=== PATIENT | male | born 1955 | race Caucasian/White ===

== ENCOUNTER 2018-07-01 14:05 | Observation (INO) | payer BC, OTHER ==
[2018-07-01 14:42] LABS: #Basophils 0.1 thou/uL (0.0-0.2); #Lymphocytes 1.1 thou/uL (1.20-3.40); #Monocytes 0.4 thou/uL (0.11-0.59); #Neutrophils 7.2 thou/uL (1.40-6.50); %Eosinophils 0.1 % (0.0-10.0); %Lymphocytes 12.1 % (21.0-51.0); %Monocytes 4.8 % (0.0-10.0); Hemoglobin 14.9 g/dL (14.0-18.0); Mean Corpuscular HGB CONC 32.1 g/dL (32.0-36.0); Mean Corpuscular Hemoglobin 32.8 pg (27.0-31.0); Mean Platelet Volume 7.2 fL (7.4-10.4); Platelet Count 279 thou/uL (130-400); RBC Distribution Width 11.9 % (11.5-14.5); Red Blood Cell (RBC) Count 4.54 mill/uL (4.70-6.10); White Blood Cell (WBC) Count 8.7 thou/uL (4.8-10.8)
[2018-07-01 15:04] LABS: ALT (SGPT) 25 U/L (8-55); AST (SGOT) 24 U/L (5-34); Albumin 3.9 g/dL (3.4-4.8); Alkaline Phosphatase 60 U/L (40-150); Anion Gap 11 mmol/L (10-20); BUN (Urea Nitrogen) 20 mg/dL (8.4-25.7); Bilirubin, Total 0.5 mg/dL (0.2-1.2); CK (CPK) 253 U/L (30-200); Calc. Creatinine Clearance 0 mL/min (70-130); Calcium 8.9 mg/dL (7.8-10.44); Carbon Dioxide 23 mmol/L (23-31); Chloride 109 mmol/L (98-107); Estimated GFR-MDRD 79; Globulin 2.2 g/dL (2.4-3.5); Glucose 107 mg/dL (80-115); Lipase 11 U/L (8-78); Potassium 4.4 mmol/L (3.5-5.1); Protein, Total 6.1 g/dL (5.8-8.1); Sodium 139 mmol/L (136-145)
[2018-07-01 15:21] LABS: Bilirubin Negative (Negative); Blood, Urine Negative (Negative); Clarity CLEAR (Clear); Glucose, Urine (Dipstick) Negative (Negative); Leukocyte Negative (Negative); Nitrite Negative (Negative); Protein, Urine (Dipstick) Negative (Neg-Trace); Urobilinogen 0.2 mg/dL (0.2-1.0); pH, Urine 5.5 (5.0-9.0)
[2018-07-01 15:24] LABS: Specific Gravity, Urine 1.055 (1.002-1.036)
--- NOTE | 2018-07-01 15:31 | ULT ---
ULTRASOUND ABDOMEN LIMITED: (RIGHT UPPER QUADRANT) 07/01/18 HISTORY: 62-year-old male with right upper quadrant abdominal pain. FINDINGS: The gallbladder has normal wall thickness and has no evidence of gallstones or sludge. The hepatic e chogenicity is normal. The right kidney has normal echogenicity and has no hydronephrosis. The panc reas is visualized, although ultrasound is relatively insensitive for pancreatic pathology compared t o CT and MRI. There is no biliary dilation. The common duct caliber is 3 mm. IMPRESSION: Normal. ronan [] POS: TIM
[2018-07-01 16:40] VITALS: BMI 32.5
[2018-07-01] MEDS ORDERED: Ondansetron ODT 4 MG TAB SL PRN (16:47)
[2018-07-01] MEDS ORDERED: Ondansetron PF 4 MG/2 ML Vial IVP PRN (16:47)
[2018-07-01] MEDS ORDERED: Sodium Chloride 0.9% 1,000 ML IV SCH (16:47)
[2018-07-01] MEDS ORDERED: Morphine 4 MG/ML VIAL SLOW IVP PRN ×2 (16:47→21:02)
[2018-07-01] MEDS ORDERED: Acetaminophen 325 MG TAB PO PRN (17:59)
[2018-07-01] MEDS: Sodium Chloride 0.9% 1,000 ML IV SCH (18:34)
--- NOTE | 2018-07-01 18:45 | HP ---
Please see the history and physical from the residents, for which I concur. The patient was seen, evaluated, and discussed with residents by bedside. CHIEF COMPLAINT: Abdominal pain. HISTORY OF PRESENT ILLNESS: This is a 62-year-old from [place], who last week had suprapubic abdominal pain for just a few hours, went away, blew it off. He has had mild viral upper respiratory tract infection symptoms this week. Again, nothing major. Slept fine last night, nothing have been abnormal. Woke up this morning feeling okay, had a bowel movement and not too much longer afterwards started having suprapubic to right and left quadrant abdominal pain, fairly intense bad enough. He called his , who has gone to the store. Told her to come back, got him to the emergency room. Morphine was given and eventually few hours later, another dose of morphine was needed to control the pain. He is better now. Did vomit once this morning. No fever. The bowel movement this morning was normal. Denies dysuria, hematuria, hesitation, or any urinary symptoms. All week, his bowel movements have been normal. He has never had a colonoscopy. He does have known coronary artery disease including stents x3 couple of years ago. It sounds like he self-discontinued his statin, but certainly not having any chest pain or shortness of breath. PAST MEDICAL HISTORY: Including the chronic umbilical hernia, it is really unchanged. Does have history of inguinal hernia surgery in the past as well. Coronary artery disease as above, right hip replacement, inguinal hernia repairs in the 70s, and back surgery before. SOCIAL HISTORY: Socially, he states two alcohol drinks at night. Last drink was last night. Nonsmoker. routine medications. Otherwise, the rest of the past medical history, per the resident's history and physical. PAST SURGICAL HISTORY: Per the resident's history and physical. MEDICATIONS: Per the resident's history and physical. REVIEW OF SYSTEMS: Per the resident's history and physical. PHYSICAL EXAMINATION: GENERAL: On exam, nontoxic. No acute distress. VITAL SIGNS: Stable and afebrile. HEENT: Within normal limits. NECK: No adenopathy, thyromegaly, or bruits. CHEST: Clear. HEART: Regular rate and rhythm. ABDOMEN: Significant for an umbilical hernia, but it is easily reducible, nontender, nonerythematous. No rebound. No guarding. I do not feel any bulges in the inguinal canal areas. The rest of the abdominal exam is here for just a little bit of suprapubic tenderness. EXTREMITIES: Showed no edema. LABORATORY DATA: The EKG was read as normal. A copy of that in front of me are available on the computer. Ultrasound here of the abdomen is benign. CT was done in [place], apparently again, I do not have a copy of that. Initial lab workup has been pretty much noncontributory looks normal. ASSESSMENT AND PLAN: 1. Abdominal pain: Differential diagnosis includes viral syndrome, mesenteric lymphadenitis, known vasculopath. I guess it could be ischemic gut, although this really does not seem to be associated with eating or history of this before. Could be an early appendicitis. Could be from the umbilical hernia, although there is really no evidence of incarceration at this point in time. No evidence of urinary issues. According the patient, he had a urine specimen done at the other hospital. Actually, we do have a copy of it, it is normal. Prostatitis is the other possibility, although certainly it is not associated with any urinary symptoms. 2. Coronary artery disease history. PLAN: 1. IV morphine p.r.n. that seemed to work. P.R.N. nausea and vomiting medications. Plenty of fluids and keep him n.p.o., watch him overnight and just see how he responds. Certainly, if the pain worsens or localize to right lower quadrant, may get Surgery involved. May get Surgery involved, if his umbilical hernia give him more trouble. But if he improves drastically, I am going to probably just get an outpatient surgical consult for the umbilical hernia and we will follow labs and white count as well. Job ID: [id number]
--- NOTE | 2018-07-01 19:18 | PDOC.FPROB ---
FMR OB H&P: HPI - History of Present Illness Chief Complaint: abdominal pain History of Present Illness: 62 yo M with PMH CAD s/p stents is transferred from [facility] for intractable abdominal pain. 1 week ago pt noticed lower abdominal/suprapubic pain when then resolved. Pain reoccurred and continued to worsen today which prompted him to go to ED. Reports vomiting x3. No dysuria, fever, constipation. Had a normal BM before pain began. Currently reports only minimal tenderness to palpation. FMR OB H&P: Medications - Current Home Medications: Medication Instructions Recorded Confirmed Type Acetaminophen [Tylenol Extra 1,000 mg PO BID 07/01/18 07/01/18 History Strength] Aspirin [Aspirin EC] 81 mg PO DAILY 07/01/18 07/01/18 History Allergies/Adverse Reactions: Allergies Allergy/AdvReac Type Severity Reaction Status Date / Time No Known Allergies Allergy Unverified 07/01/18 16:27 FMR OB H&P: Vital Signs - Maternal Vital signs: Vital Signs - First Documented Temp Pulse Resp BP Pulse Ox 97.7 F 45 L 14 118/65 96 07/01/18 18:38 07/01/18 18:38 07/01/18 18:38 07/01/18 18:38 07/01/18 18:38 FMR OB H&P: Results - Labs Lab results: Laboratory Results - last 24 hr 07/01/18 07/01/18 07/01/18 14:29 14:29 14:29 WBC 8.7 RBC 4.54 L Hgb 14.9 Hct 46.3 MCV 102.0 H MCH 32.8 H MCHC 32.1 RDW 11.9 Plt Count 279 MPV 7.2 L Neutrophils % 82.0 H Lymphocytes % 12.1 L Monocytes % 4.8 Eosinophils % 0.1 Basophils % 1.0 Neutrophils # 7.2 H Lymphocytes # 1.1 L Monocytes # 0.4 Eosinophils # 0.0 Basophils # 0.1 Sodium Potassium Chloride Carbon Dioxide Anion Gap BUN Creatinine Estimated GFR (MDRD) Glucose Calcium Total Bilirubin AST ALT Alkaline Phosphatase Creatine Kinase Troponin I Less than 0.010 B-Natriuretic Peptide 124.2 H Serum Total Protein Albumin Globulin Albumin/Globulin Ratio Lipase Urine Color Urine Clarity Urine pH Ur Specific [place] Urine Protein Urine Glucose (UA) Urine Ketones Urine Blood Urine Nitrite Urine Bilirubin Urine Urobilinogen Ur Leukocyte Esterase 07/01/18 07/01/18 14:29 15:07 WBC RBC Hgb Hct MCV MCH MCHC RDW Plt Count MPV Neutrophils % Lymphocytes % Monocytes % Eosinophils % Basophils % Neutrophils # Lymphocytes # Monocytes # Eosinophils # Basophils # Sodium 139 Potassium 4.4 Chloride 109 H Carbon Dioxide 23 Anion Gap 11 BUN 20 Creatinine 0.96 Estimated GFR (MDRD) 79 Glucose 107 Calcium 8.9 Total Bilirubin 0.5 AST 24 ALT 25 Alkaline Phosphatase 60 Creatine Kinase 253 H Troponin I B-Natriuretic Peptide Serum Total Protein 6.1 Albumin 3.9 Globulin 2.2 L Albumin/Globulin Ratio 1.8 Lipase 11 Urine Color YELLOW Urine Clarity CLEAR Urine pH 5.5 Ur Specific [place] 1.055 H Urine Protein Negative Urine Glucose (UA) Negative Urine Ketones Negative Urine Blood Negative Urine Nitrite Negative Urine Bilirubin Negative Urine Urobilinogen 0.2 Ur Leukocyte Esterase Negative FMR OB H&P: A/P Discussion: Date/Time: 07/01/181913 This H&P was discussed with [] and [] who agree with the above documentation and plan.
--- NOTE | 2018-07-01 19:22 | PDOC.FPRHP ---
- History of Present Illness Chief Complaint: abdominal pain History of Present Illness: 62 yo M with PMH CAD s/p stents is transferred from [facility] ED for intractable abdominal pain. 1 week ago pt noticed lower abdominal/suprapubic pain when then resolved. Pain reoccurred and continued to worsen today which prompted him to go to ED. Reports vomiting x3. No dysuria, fever, constipation. Had a normal BM before pain began. Currently reports only minimal tenderness to palpation. - Allergies/Adverse Reactions Allergies Allergy/AdvReac Type Severity Reaction Status Date / Time No Known Allergies Allergy Unverified 07/01/18 16:27 - Home Medications Medication Instructions Recorded Confirmed Type Acetaminophen [Tylenol Extra 1,000 mg PO BID 07/01/18 07/01/18 History Strength] Aspirin [Aspirin EC] 81 mg PO DAILY 07/01/18 07/01/18 History - History PMHx: CAD s/p 3 stents in 2017 PSHx: R hip x2 2007, back surgery 2015, tonsillectomy, bilateral inguinal hernia repair in 1970s, FHx: mother of throat cancer. father-Lenautzfearya marcos Social: No tobacco or alcohol use. Drinks 2 glasses of wine nightly - Review of Systems General: denies: fever/chills, fatigue Gastrointestinal: reports: nausea, vomiting, abdominal pain. denies: diarrhea, constipation Genitourinary: denies: incontinence, dysuria Skin: denies: rashes, lesions Musculoskeletal: denies: pain, swelling Neurological: denies: numbness, syncope - Vital signs BP: 118/65 HR: 45 RR: 14 Tmax: 97.7 Pox: 96% on RA Wt: 100 kg - Physical Exam Constitutional: NAD, awake, alert and oriented HEENT: normocephalic and atraumatic Heart: RRR, normal S1/S2, no murmurs/rubs/gallops, no edema Lungs: CTAB, no respiratory distress, no wheezing Abdomen: soft, bowel sounds present, no masses/distention, other (umbilical hernia. mild TTP in lower abdomen) Musculoskeletal: normal structure, normal tone Neurological: no focal deficit Skin: good turgor Psychiatric: normal mood and affect, good judgment and insight FMR H&P: Results - Labs Result Diagrams: 07/01/18 14:29 07/01/18 14:29 Lab results: WBC 8.7 thou/uL (4.8-10.8) 07/01/18 14:29 Hgb 14.9 g/dL (14.0-18.0) 07/01/18 14:29 Hct 46.3 % (42.0-52.0) 07/01/18 14:29 MCV 102.0 fL (78.0-98.0) H 07/01/18 14:29 Plt Count 279 thou/uL (130-400) 07/01/18 14:29 Neutrophils % 82.0 % (42.0-75.0) H 07/01/18 14:29 Sodium 139 mmol/L (136-145) 07/01/18 14:29 Potassium 4.4 mmol/L (3.5-5.1) 07/01/18 14:29 Chloride 109 mmol/L (98-107) H 07/01/18 14:29 Carbon Dioxide 23 mmol/L (23-31) 07/01/18 14:29 BUN 20 mg/dL (8.4-25.7) 07/01/18 14:29 Creatinine 0.96 mg/dL (0.7-1.3) 07/01/18 14:29 Glucose 107 mg/dL (80-115) 07/01/18 14:29 Calcium 8.9 mg/dL (7.8-10.44) 07/01/18 14:29 Total Bilirubin 0.5 mg/dL (0.2-1.2) 07/01/18 14:29 AST 24 U/L (5-34) 07/01/18 14:29 ALT 25 U/L (8-55) 07/01/18 14:29 Alkaline Phosphatase 60 U/L (40-150) 07/01/18 14:29 Creatine Kinase 253 U/L (30-200) H 07/01/18 14:29 B-Natriuretic Peptide 124.2 pg/mL (0-100) H 07/01/18 14:29 Serum Total Protein 6.1 g/dL (5.8-8.1) 07/01/18 14:29 Albumin 3.9 g/dL (3.4-4.8) 07/01/18 14:29 Lipase 11 U/L (8-78) 07/01/18 14:29 Urine Ketones Negative mg/dL (Negative) 07/01/18 15:07 Urine Blood Negative (Negative) 07/01/18 15:07 Urine Nitrite Negative (Negative) 07/01/18 15:07 Ur Leukocyte Esterase Negative (Negative) 07/01/18 15:07 FMR H&P: A/P - Problem List (1) Intractable abdominal pain Current Visit: Yes Status: Acute Code(s): R10.9 - UNSPECIFIED ABDOMINAL PAIN (2) CAD (coronary artery disease) Current Visit: Yes Status: Acute Code(s): I25.10 - ATHSCL HEART DISEASE OF [place] CORONARY ARTERY W/O ANG PCTRS (3) Alcohol use Current Visit: Yes Status: Acute Code(s): Z78.9 - OTHER SPECIFIED HEALTH STATUS - Plan Intractable Abdominal Pain - CT negative per ED physician but no record availbale - RUQ US negative - UA negative - unsure of etiology at this time. Ddx includes diverticulitis, cholecystitis, appendicitis, ischemic bowel, incarcerated hernia, SBO. None seem particularly apparent at this time. - morphine prn overnight, patient not currently in pain - continue IVF and pain management overnight and will reassess in am. Negative workup up to this point. Will consider surgery consult if acute worsening in pain. CAD s/p stents -takes ASA 81 mg daily Alcohol Use - pt reports 2 glasses wine daily - MCV macrocytic, 102 Diet: Clear liquids, advance as tolerated Ppx: SCDs Dispo: admit to medical floor for observation FMR H&P: Upper Level - Pertinent history 62 year old male presents severe, intractable abdominal pain appx 1 hour after waking up this morning. He states that it came on gradually and to the point that he could not even move it hurt so bad. Patient describes it as a sharp pain in in the suprapubic region. He also had 3 episodes of NBNB emesis around the time it first began. Patient states he currently has some nausea, but the emesis has resolved. He has been unable to eat or drink today. Patient had one episode of similar pain last Tuesday. It became more dull over the course of a day or two so he did not seek care at that time. Patient denies any constipation , diarrhea, cough, dysuria, increased urinary frequency, fever, or chills. - Pertinent findings General: Alert and oriented x3. Appeared to be in no distress. Cardio: Bradycardia, no murmurs Resp: CTA bilaterally, no acute respiratory distress Abd: Mildly tender to deep palpation in suprapubic region. No rebound tenderness. Ventral hernia midline palpated on exam. Ext: No cyanosis or edema - Plan Date/Time: 07/01/181918 I, Yolanda Henderson, have evaluated this patient and agree with findings/plan as outlined by sports intern resident. Pertinent changes/additions are listed here. 62 year old male with intractable abdominal pain 1. Intractable abdominal pain - Source unknown at this time - CT abdomen/pelvis normal (per patient report; pending records of CT) - RUQ ultrasound normal - Pain well controlled with morphine in outside ED - Continue morphine PRN for pain (monitor how much patient is requiring) - Clear liquids overnight --> advance diet as tolerated - Zofran PRN for nausea 2. CAD s/p stents x3 - Only on ASA - Patient reportedly on medications previously, but was "taken off of medications by PCP" Dispo: Observe overnight. Zofran PRN for nausea. Clear liquid diet, ADAT. Plan for possible d/c home tomorrow. Yolanda Henderson, DO PGY-2
[2018-07-01] MEDS: Acetaminophen 500 MG TAB PO SCH (20:42)
[2018-07-02] MEDS: Sodium Chloride 0.9% 1,000 ML IV SCH ×2 (01:02→09:20)
--- NOTE | 2018-07-02 06:19 | PDOC.FM ---
- Subjective Subjective: Pain has improved. Reports good appetite and would like to try regular diet today. He has hx of bilateral inguinal hernia repair and currently has umbilical hernia that needs repair. He reports similar pain 2 weeks ago. He has not established care with a PCP in [place] yet as his insurance just changed. He is passing gas. No BM yet this AM. - Objective MAR Reviewed: Yes Vital Signs & Weight: Vital Signs (12 hours) Temp Pulse Resp BP BP Pulse Ox 07/02/18 04:15 98.6 F 50 L 14 138/78 95 07/01/18 23:28 98.0 F 52 L 14 127/80 94 L 07/01/18 20:07 97.7 F 53 L 14 118/65 96 07/01/18 18:38 97.7 F 45 L 14 118/65 96 Weight Weight 100.199 kg I&O: 06/30/18 07/01/18 07/02/18 06:59 06:59 07:59 Intake Total 1657 Balance 1657 Result Diagrams: 07/01/18 14:29 07/01/18 14:29 Phys Exam - Physical Examination Constitutional: NAD HEENT: moist MMs Neck: supple Respiratory: no wheezing, clear to auscultation bilateral Cardiovascular: RRR, no significant murmur Gastrointestinal: soft, non-tender, positive bowel sounds Musculoskeletal: no edema Neurological: moves all 4 limbs Psychiatric: normal affect, A&O x 3 Skin: cap refill <2 seconds Dx/Plan (1) Intractable abdominal pain Code(s): R10.9 - UNSPECIFIED ABDOMINAL PAIN Status: Acute (2) Alcohol use Code(s): Z78.9 - OTHER SPECIFIED HEALTH STATUS Status: Chronic (3) CAD (coronary artery disease) Code(s): I25.10 - ATHSCL HEART DISEASE OF [place] CORONARY ARTERY W/O ANG PCTRS Status: Chronic - Plan Plan: Intractable Abdominal Pain - Source unknown - CT reportedly neg, awaiting records - RUQ US negative - UA negative - Pain controlled with PRN morphine. None required overnight - Zofran PRN - Advance to Regular diet CAD s/p stents - Continue ASA 81mg daily - Reports being taken off meds by PCP Alcohol Use - pt reports 2 glasses wine daily - MCV macrocytic, 102 Code Status: FULL DVT ppx: SCDs Dispo: Today with surgery f/u
[2018-07-02] MEDS ORDERED: Aspirin 81 mg Enteric Coated Tablet PO SCH (09:00)
[2018-07-02] MEDS: Acetaminophen 500 MG TAB PO SCH (09:20)
[2018-07-02 12:24] VITALS: BP 126/73; TEMP 97.8
--- NOTE | 2018-07-03 11:22 | PRG ---
DATE OF SERVICE: 07/02/2018 ADDENDUM: Please see the progress note from Dr. Rothman, which I agree. The patient was seen, evaluated, discussed, and examined with the residents by bedside. Overnight, drastic improvement, less pain, hungry. No other complaints or issues. An exam is significant for the easily reducible large umbilical hernia, but did not seem tender. The rest abdominal exam is completely benign. So, the plan was to be discharged home p.r.n. Tylenol and we will follow up with General surgery as an outpatient. I guess this could be just partial small bowel obstructions from his previous inguinal herniorrhaphy and probably needs to get his umbilical hernia repair. But, nothing at this point time is an acute abdomen and nothing is emergent at the current time. Job ID: [id number]
--- NOTE | 2018-07-03 11:36 | DIS ---
DATE OF ADMISSION: 07/01/2018 DATE OF DISCHARGE: 07/02/2018 RESIDENT: Roro Rothman MD, PGY-1 ADMITTING ATTENDING: Cipriano Wooten MD DISCHARGE ATTENDING: Cipriano Wooten MD PROCEDURES: Abdominal ultrasound, normal. CONSULT: None. PRIMARY DIAGNOSIS: Intractable abdominal pain. SECONDARY DIAGNOSES: 1. Alcohol use. 2. Coronary artery disease status post stents. DISCHARGE MEDICATIONS: 1. Aspirin 81 mg daily. 2. Tylenol 1000 mg b.i.d. p.r.n. HISTORY OF PRESENT ILLNESS/HOSPITAL COURSE: Mr. De La Fuente is a 62-year-old male with past medical history of CAD status post stent placement, transferred from [facility] ED for intractable abdominal pain. Two weeks prior, he had had similar abdominal pain, but less severe. Associated with vomiting. Of note, he has a history of bilateral inguinal hernia repairs and current umbilical hernia needing repair. He was given morphine in the [facility] ED, which resolved pain and was pain-free at discharge. He had a reportedly negative CT at [facility]. UA was negative. He was able to tolerate diet prior to discharge and his right upper ultrasound was negative. Recommended that he follow up with Surgery as outpatient and given return precautions for reoccurrence of pain. In regards to CAD status post stent, the patient was chest pain free, managed with home aspirin. He reported being taken off the other medications by his PCP. DISPOSITION: Stable. DISCHARGE INSTRUCTIONS: 1. Location. Home. 2. Diet. Heart healthy. 3. Activity. No restrictions. 4. Follow up with PCP within 1 week and General Surgery as outpatient in the next 2 to 3 weeks. Job ID: [id number] [facility]
--- NOTE | 2018-07-08 13:44 | EKG ---
Test Reason : ABD PAIN
== END 2018-07-02 12:50 | disposition home or self-care (01) ==
LOC: ERS 14:05 → 2SW 14:55
PROVIDERS: ADMIT Family Medicine; ATTEND Family Medicine
DX: R10.30 Lower abdominal pain, unspecified (principal); K42.9 Umbilical hernia without obstruction or gangrene; I25.10 Atherosclerotic heart disease of native coronary artery without angina pectoris; Z79.82 Long term (current) use of aspirin; Z79.899 Other long term (current) drug therapy; Z95.5 Presence of coronary angioplasty implant and graft; Z96.641 Presence of right artificial hip joint; Z98.890 Other specified postprocedural states
CPT/HCPCS: 36415; 76705; 80053; 81003; 82550; 83690; 83880; 84484; 85025; 87086; 93005; 96360; 96361; G0378